=== PATIENT | female | born 1930 | race Caucasian/White ===

== ENCOUNTER 2017-12-19 18:33 | Inpatient (IN) | payer OTHER ==
[~2017-12-19] VITALS: Ht 160 cm; Wt 72.8 kg
--- NOTE | ~2017-12-19 | HC ---
[facility] [place] [address] CONSULTATION Name: ABHIJEET ROCK Room #: 457-P [facility] IN M.R.#: [id number] Admission: 12/19/17 Attend Phys: Kathia Norris MD Discharge: 12/26/17 Date of : [birth year] Report #: [id number] THIS REPORT FOR: //name// CC: Kathia Norris DATE OF SERVICE: 12/21/2017 CONSULTATION: Infectious diseases. HISTORY OF PRESENT ILLNESS: Abhijeet Rock is an 87-year-old white female who comes to [facility] from [facility] on 12/19 because of weakness and diarrhea. The patient was recently treated with Keflex for urinary tract infection. Here in the hospital, workup was positive for C. difficile toxin positive in the stool with evidence of colitis on CT scan. In this setting, infectious disease consultation was requested. The patient has a past history of [id number] dementia, hypothyroidism, hypertension, gout. PAST SURGICAL HISTORY: Includes hysterectomy, vein stripping, and bladder suspension. ALLERGIES: The patient's chart notes allergies to PENICILLIN, AZITHROMYCIN, SULFA, CIPRO, and NITROFURANTOIN. FAMILY HISTORY: Noncontributory. MEDICATION RECONCILIATION: The patient's current medication list is as follows: Tylenol 650 mg q. 6 hours p.r.n., aspirin 81 mg daily, enoxaparin 30 mg at bedtime daily, Synthroid 50 mcg daily, doxepin 10 mg daily, vancomycin 125 mg orally daily. REVIEW OF SYSTEMS: The patient has some dementia. She really has very few complaints, but not too sure how reliable she is. According to the patient, she has no head, neck or chest problems. She thinks she has had diarrhea, but does not know how many stools she had or what the nature of them were. She says she does not have abdominal pain, nausea nor vomiting. The patient denies any urinary complaints. She denies any complaints in the extremities. PHYSICAL EXAMINATION: GENERAL: The patient appears her stated age, alert, oriented, pleasantly conversational, not in any distress. VITAL SIGNS: Show maximum measured temperature was 102.0 yesterday. Blood pressure has been mostly stable. The patient is afebrile today with blood pressure of 120/62, pulse 93, respirations 18, oximetry measurement on room air 92%. [facility] [address] [place] [address] CONSULTATION Name: ABHIJEET ROCK Room #: 457-P [facility] IN M.R.#: [id number] Admission: 12/19/17 Attend Phys: Kathia Norris MD Discharge: 12/26/17 Date of : [birth year] Report #: [id number] SKIN: Somewhat pale without rash, lesion or exanthem. ENT: Negative. CARDIOVASCULAR: Heart sounds are normal. LUNGS: Clear. ABDOMEN: Belly is distended and soft. It is minimally tender to palpation, but very tender to percussion. Bowel sounds were active. EXTREMITIES: Unremarkable. LABORATORY STUDIES: White count was 18,000 on admission, is now up to 35.5 with 18% bands, hemoglobin 10.2, hematocrit 29%, platelet 248,000. Electrolytes are normal. BUN 32, creatinine has gone from 2.7-2.2. The glucose is 122. The stool was positive for C. difficile. Stool for enteric pathogens are pending. The CT scan showed the absence of a gallbladder (probably surgical) the left colon did show moderate edema without pneumatosis from the splenic flexure to the rectum. ASSESSMENT AND PLAN: In summary, we have an 87-year-old white female with C. difficile colitis after receiving Keflex for urinary tract infection. It is concerning that she has a very high white count with a marked shift to the left. Abdominal examination is relatively benign and the CT shows moderate colitis. This patient has severe C. difficile disease based on her very high white count. She has a significant risk for toxic megacolon, colon necrosis or rupture. In this setting, I believe the appropriate treatment would be fidaxomicin (Dificid). Although this medicine costs about 150 dollars per pill, it is clearly the most potent and fastest acting of all the Clostridium difficile treatments. It has the other advantage that it does not affect the other normal sorin. It works best if the other antibiotics are stopped to allow the recolonization with normal sorin. I did call the pharmacy and we do not have any fidaxomicin in the pharmacy at this time. The pharmacy will continue the oral vancomycin until the fidaxomicin can be acquired. We will then initiate a regimen of 200 mg p.o. b.i.d. This should continue for 10 days. In addition, I will initiate aggressive probiotic therapy with yogurt twice a day and lactobacillus capsules 3 times a day. I would like to do 2 radiographic views of the abdomen tomorrow looking for toxic megacolon, pneumatosis coli or excess gas or even free air. If the patient does not respond in the next 24-48 hours, even though she looks good, we should have an abdominal surgeon on board. In these patients, they can deteriorate fairly quickly and require emergent colectomy should she develop colon necrosis or toxic megacolon. It is easier if the surgeon is following along with us rather than being called when the patient is in extremis. For now, we will try to change antibiotic, add probiotics and check radiographs to follow the progress of the patient. We should see the white count go down within 24-48 hours after starting the Dificid, possibly sooner if she responds to the oral vancomycin. [facility] [address] [place] [address] CONSULTATION Name: ABHIJEET ROCK Room #: 457-P [facility] IN M.R.#: [id number] Admission: 12/19/17 Attend Phys: Kathia Norris MD Discharge: 12/26/17 Date of : [birth year] Report #: [id number] I appreciate the opportunity of input in the care of this pleasant patient. Dr. Haque will return tomorrow for additional followup. Thank you for this consultation. <ELECTRONICALLY SIGNED> By: Keith Siddiqui MD 01/10/18 [id number] Keith Siddiqui MD /nt
--- NOTE | ~2017-12-19 | H ---
[facility] [address] HISTORY AND PHYSICAL Name: ABHIJEET PEREZ Room #: 452-P [facility] IN .R.#: [id number] Admission: 12/19/17 Attend Phys: Kathia Norris MD Discharge: Date of : [birth year] Report #: [id number] THIS REPORT FOR: //name// CC: Kathia Norris DATE OF SERVICE: 12/19/2017 HISTORY OF PRESENT ILLNESS: The patient is an 87-year-old female who was brought to the Emergency Room because of increasing diarrhea. The patient was found to have a leukocytosis on 12/18/2017 at that time and she was found to have an acute renal failure. The patient was having a fair amount of diarrhea. The patient denies any abdominal pain. The patient denies any nausea or vomiting. The patient has been feeling somewhat weak. The patient denies any fever, but on arrival to the floor, she had low-grade temperature. PAST MEDICAL HISTORY: Significant for hypothyroidism, hypertension, generalized weakness, unilateral osteoarthritis of the right knee, urinary tract infection, dementia and Alzheimer's and chronic pain. The patient has previous history of epistaxis, gout and age-related physical debility. MEDICATIONS: Reviewed. ALLERGIES: ALENDRONATE, ASPIRIN, AZITHROMYCIN, CODEINE, MORPHINE, NAPROXEN, NITROFURANTOIN, OXYBUTYNIN, PENICILLIN, DETROL, SKELAXIN, SULFA, CIPROFLOXACIN. SOCIAL HISTORY: The patient is living in assisted living facility at [facility]. No history of smoking or alcohol use. FAMILY HISTORY: Noncontributory. REVIEW OF SYSTEMS: Negative besides what was mentioned above. PHYSICAL EXAMINATION: VITAL SIGNS: On arrival to the hospital, the patient's temperature is 36.8, pulse 76, respiration 22, blood pressure 119/42. HEAD AND NECK: Unremarkable. NECK: Supple. LUNGS: Clear to auscultation with good air entry bilaterally. ABDOMEN: Some tenderness on the left lower quadrant area. No rebound tenderness, no rigidity. EXTREMITIES: Without any edema. LABORATORY DATA: On arrival to the hospital, lactic acid was 1.3. Basic metabolic panel showed a sodium of 134, potassium 4, chloride 99, bicarbonate 24, BUN 35, creatinine 2.7, glucose 118, lipase 43, calcium 8.4. ALT was 20, albumin 2.5. CBC showed a white count of 18.4, hemoglobin 10.9, hematocrit [address] [address] HISTORY AND PHYSICAL Name: ABHIJEET PEREZ Room #: 452-P [facility] IN .R.#: [id number] Admission: 12/19/17 Attend Phys: Kathia Norris MD Discharge: Date of : [birth year] Report #: [id number] 31.5, platelet count 264, neutrophils are 85%. Urinalysis was basically normal. Repeated blood showed sodium of 138, potassium 3.5, chloride 104, bicarbonate 22, anion gap 12, BUN 30, creatinine 2.1. The patient's CBC showed a white count of 21.8, hemoglobin 10.2, hematocrit 29.6, platelet count 254, neutrophils are 63% with 28% bands. ASSESSMENT AND PLAN: 1. Diarrhea. 2. Leukocytosis. 3. Acute kidney failure. The patient was admitted to the hospital with the above-mentioned diagnoses. I will go ahead and do a CT scan of the abdomen without contrast to evaluate if there is any pathology in the abdomen. We are asking for stool for ova and parasite, culture and sensitivity and C. difficile colitis. The patient is not on any antibiotics and she is only on IV fluid. We will continue with that until we get the results of the CT scan. The patient to start on Lovenox for DVT prophylaxis. We will resume the patient's medications. We will continue to monitor the patient. <ELECTRONICALLY SIGNED> By: Ktahia Norris MD 12/21/17 [id number] Kathia Norris MD /nt
[~2017-12-19 18:33] MED LIST: ASPIR 8181 MG PO; DITROPAN XL10 M1 PO; DOXEPIN 10 MG C10 M1 PO; LEVOTHYROXINE0.05 MG PO; LOVASTATIN 20 M20 MG PO; VASOTEC10 MG PO
[2017-12-19 18:36] VITALS: BP 119/42
[2017-12-19 19:22] LABS: HEMATOCRIT 31.5 % (37.0-47.0); HEMOGLOBIN 10.9 gm/dL (12.0-15.0); MCH 31.1 pg (26.0-34.0); MCHC 34.7 g/dL (28.0-37.0); MCV 89.6 fL (80.0-100.0); PLATELET COUNT 264 thou/uL (150-400); RBC 3.52 mil/uL (4.20-5.00); RDW 13.8 % (10.5-14.5); WBC 18.4 thou/uL (4.0-11.0)
[2017-12-19 19:30] LABS: CALCIUM 8.4 mg/dL (8.5-10.1); CREATININE 2.7 mg/dL (0.6-1.0)
[2017-12-19 19:35] LABS: ALBUMIN 2.5 g/dL (3.4-5.0); DIRECT BILIRUBIN 0.1 mg/dL (<0.1-0.3); TOTAL BILIRUBIN 0.4 mg/dL (<0.1-1.0)
[2017-12-19 19:50] LABS: TOTAL PROTEIN 6.7 g/dL (6.4-8.2)
[2017-12-19 19:56] LABS: ABSOLUTE NEUTROPHILS 15.6 thou/uL (1.4-8.2); ANISOCYTOSIS 1+
[2017-12-19 19:57] LABS: HYPOCHROMASIA SLIGHT
[2017-12-19 19:59] LABS: URINE BILIRUBIN NEGATIVE (Negative); URINE BLOOD NEGATIVE (Negative); URINE CLARITY CLEAR; URINE COLOR YELLOW; URINE GLUCOSE-RANDOM* NEGATIVE (Negative); URINE KETONES NEGATIVE (Negative); URINE NITRITE-REFLEX NEGATIVE (Negative); URINE PROTEIN (DIPSTICK) NEGATIVE (Negative); URINE UROBILINOGEN 0.2 E.U./dl (0.2-1.0)
[2017-12-19 20:00] LABS: URINE LEUKOCYTES-REFLEX TRACE (Negative)
[2017-12-19 20:55] VITALS: BP 109/59
[2017-12-19 21:17] VITALS: BP 118/50
[2017-12-19 22:13] VITALS: BP 143/68
[2017-12-20 05:47] LABS: HEMATOCRIT 29.6 % (37.0-47.0); HEMOGLOBIN 10.2 gm/dL (12.0-15.0); MCH 31.1 pg (26.0-34.0); MCHC 34.4 g/dL (28.0-37.0); MCV 90.4 fL (80.0-100.0); PLATELET COUNT 254 thou/uL (150-400); RBC 3.27 mil/uL (4.20-5.00); WBC 21.4 thou/uL (4.0-11.0)
[2017-12-20 05:52] LABS: CALCIUM 7.8 mg/dL (8.5-10.1); CREATININE 2.1 mg/dL (0.6-1.0); POTASSIUM 3.5 mmol/L (3.5-5.1)
[2017-12-20 06:07] LABS: ABSOLUTE NEUTROPHILS 19.5 thou/uL (1.4-8.2); PLATELET ESTIMATE NORMAL
[2017-12-20 06:19] VITALS: BP 104/45
[2017-12-20 15:40] VITALS: BP 148/72
[2017-12-20 19:07] VITALS: BP 92/38
[2017-12-21 04:00] LABS: HEMATOCRIT 29.9 % (37.0-47.0); HEMOGLOBIN 10.2 gm/dL (12.0-15.0); MCH 30.8 pg (26.0-34.0); MCHC 34.1 g/dL (28.0-37.0); MCV 90.3 fL (80.0-100.0); PLATELET COUNT 248 thou/uL (150-400); RBC 3.31 mil/uL (4.20-5.00); WBC 35.5 thou/uL (4.0-11.0)
[2017-12-21 04:08] LABS: CALCIUM 7.8 mg/dL (8.5-10.1); CREATININE 2.2 mg/dL (0.6-1.0); POTASSIUM 3.5 mmol/L (3.5-5.1)
[2017-12-21 04:24] LABS: ABSOLUTE NEUTROPHILS 34.1 thou/uL (1.4-8.2); PLATELET ESTIMATE NORMAL
[2017-12-21 09:40] VITALS: BP 116/66
[2017-12-21 17:05] VITALS: BP 146/71
[2017-12-21 19:03] VITALS: BP 126/62
[2017-12-22 05:36] VITALS: BP 121/95
[2017-12-22 06:46] LABS: MCH 30.1 pg (26.0-34.0)
[2017-12-22 06:51] LABS: HEMATOCRIT 33.1 % (37.0-47.0); HEMOGLOBIN 10.8 gm/dL (12.0-15.0); MCHC 32.7 g/dL (28.0-37.0); MCV 92.2 fL (80.0-100.0); PLATELET COUNT 303 thou/uL (150-400); RDW 14.2 % (10.5-14.5)
[2017-12-22 06:58] LABS: CALCIUM 7.9 mg/dL (8.5-10.1); POTASSIUM 3.3 mmol/L (3.5-5.1)
[2017-12-22 06:59] LABS: WBC 44.7 thou/uL (4.0-11.0)
[2017-12-22 07:15] VITALS: BP 130/70
[2017-12-22 12:36] LABS: MCH 30.1 pg (26.0-34.0)
[2017-12-22 12:40] LABS: HEMATOCRIT 37.6 % (37.0-47.0); HEMOGLOBIN 12.3 gm/dL (12.0-15.0); MCHC 32.6 g/dL (28.0-37.0); MCV 92.3 fL (80.0-100.0); PLATELET COUNT 367 thou/uL (150-400); RBC 4.07 mil/uL (4.20-5.00); RDW 14.5 % (10.5-14.5)
[2017-12-22 12:47] LABS: CALCIUM 8.7 mg/dL (8.5-10.1); CREATININE 2.4 mg/dL (0.6-1.0); POTASSIUM 3.4 mmol/L (3.5-5.1); WBC 46.4 thou/uL (4.0-11.0)
[2017-12-22 13:25] LABS: ABSOLUTE NEUTROPHILS 42.7 thou/uL (1.4-8.2)
[2017-12-22 13:26] VITALS: BP 124/53
[2017-12-22 20:12] VITALS: BP 123/67
[2017-12-23 02:25] VITALS: BP 137/66
[2017-12-23 07:28] VITALS: BP 144/64
[2017-12-23 11:15] LABS: HEMATOCRIT 32.6 % (37.0-47.0); HEMOGLOBIN 10.9 gm/dL (12.0-15.0); MCH 30.4 pg (26.0-34.0); MCHC 33.4 g/dL (28.0-37.0); RBC 3.58 mil/uL (4.20-5.00); RDW 14.4 % (10.5-14.5)
[2017-12-23 11:18] LABS: WBC 27.7 thou/uL (4.0-11.0)
[2017-12-23 11:28] LABS: ALBUMIN 1.8 g/dL (3.4-5.0); CREATININE 2.4 mg/dL (0.6-1.0); POTASSIUM 3.2 mmol/L (3.5-5.1); TOTAL BILIRUBIN 0.3 mg/dL (<0.1-1.0); TOTAL PROTEIN 5.5 g/dL (6.4-8.2)
[2017-12-23 13:46] VITALS: BP 116/47
[2017-12-23 19:56] VITALS: BP 126/62
[2017-12-24] VITALS: BP 127/68
[2017-12-24 05:19] VITALS: BP 198/45
[2017-12-24 05:51] LABS: HEMATOCRIT 28.2 % (37.0-47.0); HEMOGLOBIN 9.6 gm/dL (12.0-15.0); MCH 30.8 pg (26.0-34.0); MCHC 33.9 g/dL (28.0-37.0); MCV 90.7 fL (80.0-100.0); PLATELET COUNT 281 thou/uL (150-400); RBC 3.11 mil/uL (4.20-5.00); RDW 14.3 % (10.5-14.5); WBC 17.2 thou/uL (4.0-11.0)
[2017-12-24 05:57] LABS: CALCIUM 7.7 mg/dL (8.5-10.1); POTASSIUM 3.9 mmol/L (3.5-5.1)
[2017-12-24 07:10] VITALS: BP 111/53
[2017-12-24 07:31] LABS: ABSOLUTE NEUTROPHILS 14.8 thou/uL (1.4-8.2); ANISOCYTOSIS SLIGHT; METAMYELOCYTES 2 %; OVALOCYTES FEW
[2017-12-24 13:46] VITALS: BP 134/61
[2017-12-24 15:48] VITALS: BP 125/60
[2017-12-24 19:57] VITALS: BP 114/55
[2017-12-25 04:01] VITALS: BP 117/56
[2017-12-25 05:50] LABS: ABSOLUTE NEUTROPHILS 10.2 thou/uL (1.4-8.2); BASOPHILS 0.7 % (0.0-2.0); EOSINOPHILS 2.6 % (0.0-3.0); HEMATOCRIT 28.8 % (37.0-47.0); HEMOGLOBIN 9.7 gm/dL (12.0-15.0); LYMPHOCYTES 8.8 % (24.0-44.0); MCH 30.6 pg (26.0-34.0); MCHC 33.6 g/dL (28.0-37.0); MCV 91.1 fL (80.0-100.0); MONOCYTES 10.5 % (1.0-8.0); PLATELET COUNT 308 thou/uL (150-400); POLYS 77.4 % (36.0-66.0); RBC 3.16 mil/uL (4.20-5.00); RDW 14.5 % (10.5-14.5); WBC 13.2 thou/uL (4.0-11.0)
[2017-12-25 06:04] LABS: CREATININE 1.8 mg/dL (0.6-1.0); POTASSIUM 4.3 mmol/L (3.5-5.1)
[2017-12-25 09:12] VITALS: BP 137/58
[2017-12-25 16:03] VITALS: BP 118/57
[2017-12-25 19:38] VITALS: BP 143/69
[2017-12-26 04:39] LABS: ABSOLUTE NEUTROPHILS 10.3 thou/uL (1.4-8.2); BASOPHILS 0.5 % (0.0-2.0); EOSINOPHILS 2.2 % (0.0-3.0); HEMATOCRIT 28.8 % (37.0-47.0); HEMOGLOBIN 9.7 gm/dL (12.0-15.0); LYMPHOCYTES 8.6 % (24.0-44.0); MCH 30.6 pg (26.0-34.0); MCHC 33.7 g/dL (28.0-37.0); MCV 90.6 fL (80.0-100.0); MONOCYTES 10.8 % (1.0-8.0); PLATELET COUNT 335 thou/uL (150-400); POLYS 77.9 % (36.0-66.0); RBC 3.18 mil/uL (4.20-5.00); RDW 14.3 % (10.5-14.5); WBC 13.2 thou/uL (4.0-11.0)
[2017-12-26 04:51] LABS: CALCIUM 7.7 mg/dL (8.5-10.1); CREATININE 1.5 mg/dL (0.6-1.0); POTASSIUM 4.8 mmol/L (3.5-5.1)
[2017-12-26 05:59] VITALS: BP 99/47
[2017-12-26 08:00] VITALS: BP 143/72
[2017-12-26] MEDS ORDERED: FLAGYL500 M1 PO (10:10)
[2017-12-26] MEDS ORDERED: FIRVANQ50 MG/1 ML PO (10:10)
[2017-12-26] MEDS ORDERED: K-DUR 20 MEQ T20 MEQ PO (10:10)
[2017-12-26] MEDS ORDERED: IPRAT-ALBUT 0.5-3 ML INH (10:10)
[2017-12-26] MEDS ORDERED: MUCINEX DM ER1 EAC1 PO (10:10)
[2017-12-26] MEDS ORDERED: LASIX 40 MG TAB40 M1 PO (10:10)
[2017-12-26] MEDS ORDERED: ACIDOPHILUS1 EAC4 PO (10:10)
== END 2017-12-26 12:07 | DRG 872 ==
LOC: ER 18:33 → EROBS 20:54 → 4W 20:54
PROVIDERS: Emergency Medicine; Internal Medicine; Nurse Practitioner Adult Health; Surgery
DX: A41.9 Sepsis, unspecified organism (principal); A04.72 Enterocolitis due to Clostridium difficile, not specified as recurrent; N17.9 Acute kidney failure, unspecified; E87.2 Acidosis; J98.11 Atelectasis; E44.1 Mild protein-calorie malnutrition; E03.9 Hypothyroidism, unspecified; M10.9 Gout, unspecified; G30.9 Alzheimer's disease, unspecified; F02.80 Dementia in other diseases classified elsewhere, unspecified severity, without behavioral disturbance, psychotic disturbance, mood disturbance, and anxiety; G89.29 Other chronic pain; M17.11 Unilateral primary osteoarthritis, right knee; D72.829 Elevated white blood cell count, unspecified; Z79.82 Long term (current) use of aspirin; Z90.710 Acquired absence of both cervix and uterus; Z88.1 Allergy status to other antibiotic agents; Z88.0 Allergy status to penicillin; Z88.8 Allergy status to other drugs, medicaments and biological substances; Z79.899 Other long term (current) drug therapy
CPT/HCPCS: 10040